=== PATIENT | male | born 1955 | race Caucasian/White ===

== ENCOUNTER 2020-09-16 13:11 | Outpatient (CLI) | payer BC ==
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
== END 2020-09-16 13:12 | disposition home or self-care (01) ==
LOC: BICCT 13:11
PROVIDERS: ATTEND Nurse Practitioner Family
DX: S09.90XA Unspecified injury of head, initial encounter (principal); G44.52 New daily persistent headache (NDPH); J34.89 Other specified disorders of nose and nasal sinuses; K11.8 Other diseases of salivary glands
CPT/HCPCS: 70450

== ENCOUNTER 2020-09-29 10:55 | Outpatient (CLI) | payer BC ==
[~2020-09-29 10:55] MED LIST: Iopamidol-370 76% 500 ML 1 ML ONE
--- NOTE | 2020-09-29 11:59 | CT ---
CT of the neck: 09/29/2020 HISTORY: Abnormal CT performed 09/16/2020 demonstrating bilateral parotid masses TECHNIQUE: Axial CT imaging at 3 mm intervals from the skull base through the lung apices with IV con trast. Coronal and sagittal reformatted imaging obtained. FINDINGS: There is mucosal thickening involving the ethmoid air cells bilaterally. The retroantral fat, the parapharyngeal fat, and bilateral submandibular glands are unremarkable. There is mild nonspecific thickening of the uvula. The palantine tonsils appear grossly unremarkable bilaterally. The hyoid bone, thyroid cartilage, cricoid cartilage, thyroid gland, and level of the glottis demonstrate no acute findings. There is atherosclerotic calcification involving the cavernous carotid arteries and the proximal inte rnal carotid arteries bilaterally. There is diffuse enlargement of the thyroid gland. Mildly prominent level 2 lymph nodes are noted on the right measuring up to 8 mm in short axis dimens ion. Similar mildly prominent level 2 lymph node noted on the right on axial image 59. Numerous parotid masses are noted bilaterally. On the right this includes 4-5 such lesions within the superficial lobe of the right parotid gland measuring up to 1.7 cm. On the left there are 3 such lesions including a inferior superficial lobe lesion measuring 2.8 cm and a superior superficial lobe lesion measuring 3.2 cm. The visualized lung apices demonstrate subpleural emphysematous changes bilaterally, right greater th an left. There is degenerative change at the atlantoaxial interspace. No worrisome lytic or blastic bone lesio ns. IMPRESSION: Multiple solid bilateral parotid masses, left larger than right. 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 ENT consultation recommended.
== END 2020-09-29 10:56 | disposition home or self-care (01) ==
LOC: BICCT 10:55
PROVIDERS: ATTEND Nurse Practitioner Family
DX: K11.8 Other diseases of salivary glands (principal)
CPT/HCPCS: 70487; 82565; Q9967